=== PATIENT | female | born 1975 | race Caucasian/White ===

== ENCOUNTER → 2022-05-06 10:33 | Outpatient (CLI) | payer OTHER, SELFPAY ==
[2022-05-06 19:47] LABS: Add Manual Diff / Slide Review NO; Basophils Absolute Auto 0 /uL (0-100); Basophils Percent Auto 0.4 % (0-2); Eosinophils Absolute Auto 100 /uL (0-450); Eosinophils Percent Auto 1.8 % (2-4); Hemoglobin 12.7 g/dL (12.0-16.0); Lymphocytes Absolute Auto 1400 /uL (1100-4500); Lymphocytes Percent Auto 36.6 % (25-40); Mean Corpuscular HGB Conc 34.4 % (30-36); Mean Corpuscular Hemoglobin 31.4 PG (26-34); Mean Corpuscular Volume 91.3 fL (80-100); Monocytes Absolute Auto 300 /uL (0-900); Monocytes Percent Auto 8.3 % (3-14); Neutrophils Absolute Auto 2000 /uL (1500-7000); Neutrophils Percent Auto 52.9 % (50-75); Platelet Count 254 X10^3/uL (150-400); Red Blood Cell Count 4.06 X10^6/uL (4.0-5.2); Red Cell Distribution Width 12.4 % (11.6-14.8); White Blood Cell Count 3.8 X10^3/uL (4.5-11.0)
[2022-05-06 19:56] LABS: Hemoglobin A1C% w Est Avg Glu 5.2 % (4.0-6.0)
[2022-05-06 20:07] LABS: Alanine Aminotransferase 18 IU/L (<35); Albumin 4.2 g/dL (3.5-5.0); Albumin Globulin Ratio 1.5 (1.0-2.8); Alkaline Phosphatase 42 U/L (38-126); Aspartate Aminotransferase 26 IU/L (14-36); Bilirubin Total 0.5 mg/dL (0.2-1.3); Blood Urea Nitrogen 9 mg/dL (7-17); Calcium 8.8 mg/dL (8.4-10.2); Carbon Dioxide 31 mmol/L (22-32); Chloride 101 mmol/L (98-107); Cholesterol 186 mg/dL (140-199); Estimated Glomerular Filt Rate > 60 mL/min (>60); Globulin 2.8 g/dL (1.7-4.1); Glucose 83 mg/dL (70-100); HDL Cholesterol 57 mg/dL (40-60); HEMOLYSIS < 15 (0-50); LDL Cholesterol Calculated 121 mg/dL (<100); Potassium 4.2 mmol/L (3.4-5.1); Sodium 139 mmol/L (137-145); Triglycerides 41 mg/dL (35-150)
[2022-05-06 20:22] LABS: TSH w/ Reflex to FT4 1.16 uIU/mL (0.47-4.68)
== END ==
PROVIDERS: PCP Physician Assistant; Visit Provider Physician Assistant
DX: F32.9 Major depressive disorder, single episode, unspecified (principal); F41.9 Anxiety disorder, unspecified; F51.01 Primary insomnia; G43.909 Migraine, unspecified, not intractable, without status migrainosus; G62.9 Polyneuropathy, unspecified
CPT/HCPCS: 80053; 80061; 83036; 84443; 85025

== ENCOUNTER → 2022-10-06 14:38 | Outpatient (CLI) | payer OTHER, SELFPAY ==
[2022-10-06 19:12] LABS: Add Manual Diff / Slide Review NO; Basophils Absolute Auto 0 /uL (0-100); Basophils Percent Auto 0.3 % (0-2); Eosinophils Absolute Auto 0 /uL (0-450); Eosinophils Percent Auto 0.6 % (2-4); Hematocrit 39.3 % (36-46); Hemoglobin 13.3 g/dL (12.0-16.0); Lymphocytes Absolute Auto 1500 /uL (1100-4500); Lymphocytes Percent Auto 22.7 % (25-40); Mean Corpuscular Hemoglobin 31.3 PG (26-34); Mean Corpuscular Volume 92.2 fL (80-100); Monocytes Absolute Auto 500 /uL (0-900); Monocytes Percent Auto 8.1 % (3-14); Neutrophils Absolute Auto 4400 /uL (1500-7000); Neutrophils Percent Auto 68.3 % (50-75); Platelet Count 339 X10^3/uL (150-400); Red Blood Cell Count 4.26 X10^6/uL (4.0-5.2); Red Cell Distribution Width 12.4 % (11.6-14.8); White Blood Cell Count 6.4 X10^3/uL (4.5-11.0)
[2022-10-06 19:18] LABS: Alanine Aminotransferase 19 IU/L (<35); Albumin 4.3 g/dL (3.5-5.0); Albumin Globulin Ratio 1.4 (1.0-2.8); Alkaline Phosphatase 66 U/L (38-126); Aspartate Aminotransferase 25 IU/L (14-36); BUN Creatinine Ratio 19.8 (6-22); Bilirubin Total 0.6 mg/dL (0.2-1.3); Blood Urea Nitrogen 16 mg/dL (7-17); Calcium 9.5 mg/dL (8.4-10.2); Carbon Dioxide 30 mmol/L (22-32); Chloride 98 mmol/L (98-107); Cholesterol 244 mg/dL (140-199); Estimated Glomerular Filt Rate > 60 mL/min (>60); Globulin 3.1 g/dL (1.7-4.1); Glucose 85 mg/dL (70-100); HDL Cholesterol 73 mg/dL (40-60); HEMOLYSIS < 15 (0-50); LDL Cholesterol Calculated 160 mg/dL (<100); Potassium 4.2 mmol/L (3.4-5.1); Sodium 138 mmol/L (137-145); Total Protein 7.4 g/dL (6.3-8.2); Triglycerides 54 mg/dL (35-150)
[2022-10-06 19:33] LABS: Free T4, Direct Thyroxine 1.32 ng/dL (0.78-2.19)
[2022-10-06 19:47] LABS: Thyroid Stimulating Hormone 2.02 uIU/mL (0.47-4.68)
== END ==
PROVIDERS: PCP Physician Assistant; Visit Provider Family Medicine
DX: R63.4 Abnormal weight loss (principal); R11.0 Nausea; R13.10 Dysphagia, unspecified
CPT/HCPCS: 80053; 80061; 84439; 84443; 84481; 85025

== ENCOUNTER → 2022-10-12 14:30 | Outpatient (CLI) | payer OTHER, SELFPAY ==
[2022-10-15 14:59] LABS: H. Pylori Antigen Stool Negative (Negative)
== END ==
PROVIDERS: PCP Physician Assistant; Visit Provider Family Medicine
DX: R11.0 Nausea (principal); R63.4 Abnormal weight loss
CPT/HCPCS: 87338

== ENCOUNTER → 2022-10-15 10:56 | Outpatient (CLI) | payer OTHER, SELFPAY ==
--- NOTE | 2022-10-15 11:00 | DI.CT.S_ITS ---
PROCEDURE: CT ABDOMEN PELVIS W CON INDICATIONS: 30 # weight loss, constant nausea, dysphagia TECHNIQUE: After the administration of oral and IV contrast, axial sections were acquired from the lung bases to the pubic symphysis. Coronal and sagittal reformats were performed. For radiation dose reduction, the following was used: automated exposure control, adjustment of mA and/or kV according to patient size. COMPARISON: None. FINDINGS: Image quality: Excellent. Lung bases: Unremarkable. Heart: No significant findings. ABDOMEN: Liver: Unremarkable. Gallbladder: Gallbladder is distended. No calcified gallstones. No gallbladder wall thickening or pericholecystic fluid. Biliary ducts: Unremarkable. Pancreas: Unremarkable. Spleen: Unremarkable. Adrenal Glands: Unremarkable. Kidneys and Ureters: Unremarkable. Stomach and Bowel: There is no bowel obstruction. Fecal stasis in the colon is seen. Suggestion of distal gastric wall thickening and edema is noted with narrowing of the lumen. Fluid-filled small bowel loops are noted in lower abdomen and pelvis with questionable small bowel wall thickening. Appendix is visualized and is within normal limits. No abnormal colonic wall thickening. No abscess collection. Peritoneum: No abnormal intraperitoneal fluid. No free air. Ventral Wall: No hernia. Abdominal Nodes: No retroperitoneal or mesenteric adenopathy by size criteria. Vessels: Aorta and inferior vena cava are normal in size. PELVIS: Pelvic Organs: Intrauterine device is noted. No gross abnormality is seen in bilateral adnexa. Small amount of free fluid is seen in lower pelvis. Bladder: Partially distended urinary bladder shows questionable bladder wall thickening, no discrete bladder wall mass is noted. Pelvic Nodes: No enlarged lymph nodes. Miscellaneous: No inguinal hernias are seen. Bones: No suspicious bony lesion. No acute vertebral body compression fracture. IMPRESSION: 1. Distal gastric wall thickening and edema concerning for infectious or inflammatory gastritis. 2. Suggestion of small bowel wall thickening and edema in lower abdomen and pelvis concerning for enteritis. 3. Szmf-oz-jeddnxug constipation. No abnormal colonic wall thickening. No abscess collection. No free fluid or free air. 4. Questionable bladder wall thickening suggest clinical correlation for possible cystitis. No definite bladder wall mass is seen. Dictated by: Cooper Reyes M.D. on 10/15/2022 at 15:17 Approved by: Cooper Reyes M.D. on 10/15/2022 at 15:28
== END ==
PROVIDERS: PCP Physician Assistant; Referring Provider Family Medicine; Visit Provider Family Medicine
DX: K59.00 Constipation, unspecified (principal); R13.10 Dysphagia, unspecified; R63.4 Abnormal weight loss; R11.0 Nausea
CPT/HCPCS: 74177; Q9967

== ENCOUNTER → 2023-04-27 13:17 | Outpatient (CLI) | payer OTHER, SELFPAY ==
[2023-04-27 18:59] LABS: Add Manual Diff / Slide Review NO; Basophils Absolute Auto 0 /uL (0-100); Basophils Percent Auto 0.5 % (0-2); Eosinophils Absolute Auto 100 /uL (0-450); Eosinophils Percent Auto 1.8 % (2-4); Hematocrit 35.9 % (36-46); Hemoglobin 12.2 g/dL (12.0-16.0); Lymphocytes Absolute Auto 1800 /uL (1100-4500); Lymphocytes Percent Auto 41.6 % (25-40); Mean Corpuscular HGB Conc 34.1 % (30-36); Mean Corpuscular Hemoglobin 31.1 PG (26-34); Mean Corpuscular Volume 91.2 fL (80-100); Monocytes Absolute Auto 300 /uL (0-900); Monocytes Percent Auto 7.5 % (3-14); Neutrophils Absolute Auto 2100 /uL (1500-7000); Neutrophils Percent Auto 48.6 % (50-75); Platelet Count 271 X10^3/uL (150-400); Red Blood Cell Count 3.94 X10^6/uL (4.0-5.2); Red Cell Distribution Width 12.4 % (11.6-14.8); White Blood Cell Count 4.4 X10^3/uL (4.5-11.0)
[2023-04-27 19:02] LABS: HEMOLYSIS < 15 (0-50); Iron 164 ug/dL (37-170)
[2023-04-27 19:07] LABS: Alanine Aminotransferase 20 IU/L (<35); Albumin 3.9 g/dL (3.5-5.0); Albumin Globulin Ratio 1.4 (1.0-2.8); Alkaline Phosphatase 55 U/L (38-126); Aspartate Aminotransferase 27 IU/L (14-36); BUN Creatinine Ratio 17.5 (6-22); Bilirubin Total 0.4 mg/dL (0.2-1.3); Blood Urea Nitrogen 14 mg/dL (7-17); Calcium 9.4 mg/dL (8.4-10.2); Carbon Dioxide 32 mmol/L (22-32); Chloride 101 mmol/L (98-107); Estimated Glomerular Filt Rate > 60 mL/min (>60); Globulin 2.7 g/dL (1.7-4.1); Glucose 86 mg/dL (70-100); HEMOLYSIS < 15 (0-50); Potassium 3.7 mmol/L (3.4-5.1); Sodium 139 mmol/L (137-145); Total Protein 6.6 g/dL (6.3-8.2)
[2023-04-27 19:15] LABS: Percent Iron Saturation 53 % (15-50); Total Iron Binding Capacity 308 ug/dL (265-497)
[2023-04-27 19:18] LABS: Transferrin 216 mg/dL (206-381)
[2023-04-27 19:42] LABS: Ferritin 22 ng/mL (6-137)
[2023-04-27 19:56] LABS: Vitamin B12 > 1000 pg/mL (239-931)
[2023-04-27 20:14] LABS: Folate > 20.0 ng/mL (2.76-20.0)
== END ==
PROVIDERS: PCP Family Medicine; Visit Provider Family Medicine
DX: G25.81 Restless legs syndrome (principal); G62.9 Polyneuropathy, unspecified; R53.83 Other fatigue; R63.4 Abnormal weight loss
CPT/HCPCS: 80053; 82607; 82728; 82746; 83540; 83550; 85025

== ENCOUNTER → 2023-09-09 14:24 | Outpatient (CLI) | payer OTHER, SELFPAY ==
--- NOTE | 2023-09-09 14:30 | DI.RAD.S_ITS ---
PROCEDURE: XR LUMBAR SPINE MIN 4V INDICATIONS: back pain TECHNIQUE: 5 views of the lumbar spine were acquired, including bilateral oblique views. COMPARISON: None. FINDINGS: Bones: 5 nonrib-bearing vertebrae are present. There is normal bony alignment. No vertebral body compression fractures. No suspicious bony lesions. Soft tissues: Overlying bowel gas pattern is normal. No suspicious soft tissue calcifications. Moderate colonic stool load. Oblique images: No pars defects. IMPRESSION: No significant degenerative disc disease or facet arthrosis. Moderate colonic stool load. Dictated by: Go Farrar M.D. on 09/09/2023 at 16:46 Approved by: Go Farrar M.D. on 09/09/2023 at 16:46
--- NOTE | 2023-09-09 14:30 | DI.RAD.S_ITS ---
PROCEDURE: XR CERVICAL SPINE 4V OR 5V INDICATIONS: neck pain TECHNIQUE: 5 views of the cervical spine acquired. COMPARISON: None. FINDINGS: Bones: No fractures or dislocations to the T1 level. Oblique images demonstrate no bony foraminal stenoses. Right-sided neural foraminal narrowing at C3-4. Facet hypertrophy at C3-4, left greater than right. Soft tissues: No prevertebral soft tissue swelling. IMPRESSION: Facet hypertrophy at C3-4, left greater than right, resulting in [id number] right-sided neural foraminal narrowing. Dictated by: Go Farrar M.D. on 09/09/2023 at 16:46 Approved by: Go Farrar M.D. on 09/09/2023 at 16:50
== END ==
PROVIDERS: PCP Family Medicine; Referring Provider Anesthesiology; Visit Provider Anesthesiology
DX: M47.812 Spondylosis without myelopathy or radiculopathy, cervical region (principal); M48.02 Spinal stenosis, cervical region; M54.2 Cervicalgia; M54.9 Dorsalgia, unspecified
CPT/HCPCS: 72050; 72110; 99214

== ENCOUNTER → 2024-01-21 07:38 | Outpatient (CLI) | payer OTHER, SELFPAY ==
--- NOTE | 2024-01-21 | DI.NM.S_ITS ---
PROCEDURE: NM HUMA PERF SPECT R&S PHARM Rest and pharmacological stress myocardial perfusion SPECT with gated imaging and ejection fraction RADIOPHARMACEUTICAL: 25.8 mCi Tc-99m tetrafosmin IV at rest and 24.8 mCi Tc-99m tetrafosmin IV at peak effect of pharmacological stress. Jif-oby-nfgstqpi was performed. INDICATIONS: Syncope TECHNIQUE: Radiopharmaceutical was injected at peak stress test, and also at rest. SPECT images were obtained. SPECT myocardial perfusion images were displayed in short axis, horizontal long axis, and vertical long axis views. Gated images were reviewed using Fingerprint software. COMPARISON: None. CARDIAC STRESS: An exercise stress test was performed using the Santi protocol 6:00. The patient achieved a maximum heart rate of 139 bpm (81% peak predicted) but could not keep up with the treadmill so this test was switched to pharmacologic. She achieved 6.9 METS and an AVERY of +41%. A pharmacologic stress test was performed under the supervision of an attending staff, using an infusion of regadenoson 0.4 mg IV. Hemodynamic data: There is normal blood pressure and heart rate response to pharmacologic stress. Symptoms: The patient denied anginal chest pain. EKG: No diagnostic changes of ischemia; no ectopy. FINDINGS: Raw data: There is good myocardial uptake of radiotracer. No significant motion artifacts. Niao-wu-bsbll ratio is 0.36 (normal is less than 0.38 for tetrafosmin tracer). Left ventricle function: Gated images demonstrate normal left ventricular wall thickening. No segmental wall motion abnormalities. No transient ischemic dilation; TID is 0.92 (normal less than 1.3). Left ventricle resting end diastolic volume is 65 mL. Left ventricle stress ejection fraction is >75%; normal range is above 45%. Myocardial perfusion: There is normal distribution of activity in the right and left ventricular myocardium. No fixed or reversible perfusion defects. IMPRESSION: Low risk study for ischemia. Exercise stress test converted to pharmacologic due to inability to keep up with the treadmill. No evidence of pharmacologic induced ischemia or scar. Normal LV size with hyperdynamic function. Dictated by: Angelica Day D.O. on 01/26/2024 at 15:15 Approved by: Angelica Day D.O. on 01/26/2024 at 15:19
== END ==
LOC: NUCM 07:38
PROVIDERS: PCP Family Medicine; Referring Provider Family Medicine; Visit Provider Family Medicine
DX: R55 Syncope and collapse (principal); R07.89 Other chest pain; I95.9 Hypotension, unspecified
CPT/HCPCS: 78452; 93017; A9502; J2785

== ENCOUNTER → 2024-04-11 12:10 | Outpatient (CLI) | payer OTHER, SELFPAY ==
--- NOTE | 2024-04-11 12:11 | DI.MRI.S_ITS ---
PROCEDURE: MR HEAD/BRAIN WO/W CON INDICATIONS: near syncope vrs seizure TECHNIQUE: Noncontrast axial T1 spin echo, axial T2 fast spin echo, sagittal and axial FLAIR, axial gradient echo, axial diffusion and ADC, coronal thin-slice T2 FSE through the brain. Optional contrast, followed by axial and coronal and sagittal 3D VIBE or T1 spin echo with fat saturation sequences through the brain. COMPARISON: None. FINDINGS: Image quality: Excellent. CSF spaces: Ventricles are normal in size and shape. Basal cisterns are patent. No extra-axial fluid collections. Brain: No intracranial bleeds or mass effects. No abnormal intracranial enhancement. Lebron-white matter interface appears intact. Diffusion weighted images demonstrate no acute ischemic insults. Brainstem appear normal. Normal intravascular flow voids are present. The hippocampal regions appear normal and symmetric in morphology. Skull and face: Calvarial marrow signal is normal. Orbits appear normal. Sinuses: Sinuses and mastoids are clear. IMPRESSION: Normal brain MRI for age, without a cause of seizures identified. The hippocampi demonstrate a normal, symmetric appearance. No masses or abnormal enhancement can be seen. Dictated by: Td Gomez M.D. on 04/11/2024 at 14:45 Approved by: Td Gomez M.D. on 04/11/2024 at 14:46
== END ==
PROVIDERS: PCP Family Medicine; Referring Provider Family Medicine; Visit Provider Family Medicine
DX: R55 Syncope and collapse (principal); R56.9 Unspecified convulsions
CPT/HCPCS: 70553; A9579

== ENCOUNTER → 2024-10-18 14:14 | Outpatient (CLI) | payer OTHER, SELFPAY ==
--- NOTE | 2024-10-18 14:15 | DI.MG.S_ITS ---
MM screening mammo BI: 10/18/2024. BI-RADS: 0 CLINICAL: 49-year old female for bilateral screening mammogram. Tyrer-Cuzick lifetime risk of 14.5%. No personal or first-degree family history of breast cancer. PRIOR EXAMS 04/04/2020, 10/25/2018, 08/09/2017, 04/21/2016. MAMMOGRAPHY TECHNIQUE: 2D and 3D (tomosynthesis) digital mammographic views obtained, with additional images as needed for full coverage. Current study was also evaluated with a Computer Aided Detection (CAD) system. DENSITY D. The breasts are extremely dense, which lowers the sensitivity of mammography. MAMMOGRAPHY FINDINGS Right: No suspicious mass, asymmetry, microcalcification, or other abnormality seen. Left: Upper Outer Quadrant, Posterior depth: Calcifications needing additional imaging evaluation. IMPRESSION: Right * No evidence of malignancy. Left (Calcification): Upper Outer Quadrant, Posterior depth * Incomplete - calcification needing additional imaging evaluation. RECOMMENDATIONS Left: Upper Outer Quadrant, Posterior depth * Further evaluation with diagnostic mammography. OVERALL ASSESSMENT CATEGORY BI-RADS-0: Incomplete - Need Additional Imaging Evaluation. ELECTRONICALLY SIGNED: Rozina Wahl M.D. on 10/18/2024 at 08:43:57 PM PT Interpreting Station ID: [id number]
== END ==
PROVIDERS: PCP Family Medicine; Referring Provider Family Medicine; Visit Provider Family Medicine
DX: Z12.31 Encounter for screening mammogram for malignant neoplasm of breast (principal); R92.343 Mammographic extreme density, bilateral breasts
CPT/HCPCS: 77063; 77067

== ENCOUNTER → 2024-11-10 13:14 | Outpatient (CLI) | payer OTHER, SELFPAY ==
--- NOTE | 2024-11-10 13:15 | DI.US.S_ITS ---
US breast LT limited, MM diagnostic mammo unilat LT: 11/10/2024 BI-RADS: 3 CLINICAL: 49-year old female for left diagnostic mammogram and left diagnostic breast ultrasound that is a recall from screening on 10/18/2024. Tyrer-Cuzick lifetime risk of 14.5%. No personal or first-degree family history of breast cancer. PRIOR EXAMS: Mammogram(s): 10/18/2024, 04/04/2020, 10/25/2018. MAMMOGRAPHY TECHNIQUE: 2D and 3D (tomosynthesis) digital mammographic views obtained, with additional images as needed for full coverage. Current study was also evaluated with a Computer Aided Detection (CAD) system. ULTRASOUND TECHNIQUE Real-time bear scale and color doppler imaging of the area of clinical interest was performed with image documentation. Left targeted breast ultrasound of the area of clinical interest and the axilla was performed with image documentation. DENSITY Left: D. The breasts are extremely dense, which lowers the sensitivity of mammography. MAMMOGRAPHY FINDINGS Left (finding-1): Outer at 3:00, Posterior depth. Previous report: Upper Outer Quadrant: There are grouped milk of calcium VERSUS round calcifications. ULTRASOUND FINDINGS Left (finding-1): Outer at 3:00, 7 cm from nipple, measuring 0.9 x 0.7 x 0.6 cm. Previous report: Upper Outer Quadrant: Associated microcalcifications and internal septation. Correlating with findings on mammogram there is a complicated cyst showing posterior acoustic enhancement. Doppler shows no vascularity. No axillary adenopathy. IMPRESSION: Left (Complicated Cyst): Outer at 3:00, 7 cm from nipple, measuring 0.9 x 0.7 x 0.6 cm. Previous report: Upper Outer Quadrant * Probably Benign. RECOMMENDATIONS Left: Outer at 3:00, 7 cm from nipple * Six month followup with diagnostic ultrasound and diagnostic mammography. COMMENTS: Findings and recommendations were conveyed to the patient during today's evaluation. OVERALL ASSESSMENT CATEGORY BI-RADS-3: Probably Benign. ELECTRONICALLY SIGNED: Cj Do M.D. on 11/10/2024 at 03:19:15 PM PT Interpreting Station ID: [id number]
== END ==
PROVIDERS: PCP Family Medicine; Referring Provider Family Medicine; Visit Provider Family Medicine
DX: R92.8 Other abnormal and inconclusive findings on diagnostic imaging of breast (principal); N60.02 Solitary cyst of left breast; R92.342 Mammographic extreme density, left breast
CPT/HCPCS: 76642; 77065; G0279

== ENCOUNTER → 2024-11-20 10:37 | Outpatient (CLI) | payer OTHER, SELFPAY ==
[2024-11-20 19:30] LABS: Add Manual Diff / Slide Review NO; Basophils Absolute Auto 0 /uL (0-100); Basophils Percent Auto 0.6 % (0-2); Eosinophils Absolute Auto 100 /uL (0-450); Hematocrit 38.9 % (36-46); Hemoglobin 12.9 g/dL (12.0-16.0); Lymphocytes Absolute Auto 1700 /uL (1100-4500); Mean Corpuscular HGB Conc 33.2 % (30-36); Mean Corpuscular Hemoglobin 30.6 PG (26-34); Monocytes Absolute Auto 400 /uL (0-900); Monocytes Percent Auto 8.7 % (3-14); Neutrophils Absolute Auto 2500 /uL (1500-7000); Neutrophils Percent Auto 52.7 % (50-75); Platelet Count 295 X10^3/uL (150-400); Red Blood Cell Count 4.23 X10^6/uL (4.0-5.2); Red Cell Distribution Width 12.6 % (11.6-14.8); White Blood Cell Count 4.8 X10^3/uL (4.5-11.0)
[2024-11-20 19:41] LABS: BUN Creatinine Ratio 19.5 (6-22); Blood Urea Nitrogen 16 mg/dL (7-17); Calcium 9.1 mg/dL (8.4-10.2); Carbon Dioxide 31 mmol/L (22-32); Chloride 100 mmol/L (98-107); Cholesterol 288 mg/dL (140-199); Estimated Glomerular Filt Rate > 60 mL/min (>60); Glucose 88 mg/dL (70-99); HDL Cholesterol 82 mg/dL (40-60); HEMOLYSIS < 15 (0-50); LDL Cholesterol Calculated 198 mg/dL (<100); Potassium 4.6 mmol/L (3.4-5.1); Sodium 136 mmol/L (137-145); Triglycerides 42 mg/dL (35-150)
[2024-11-20 20:10] LABS: TSH w/ Reflex to FT4 2.16 uIU/mL (0.47-4.68)
== END ==
PROVIDERS: PCP Family Medicine; Visit Provider Family Medicine
DX: F51.04 Psychophysiologic insomnia (principal); M79.7 Fibromyalgia; F41.1 Generalized anxiety disorder; F32.9 Major depressive disorder, single episode, unspecified; E78.2 Mixed hyperlipidemia; L40.9 Psoriasis, unspecified; G25.81 Restless legs syndrome; R56.9 Unspecified convulsions; G47.30 Sleep apnea, unspecified
CPT/HCPCS: 80048; 80061; 84443; 85025

== ENCOUNTER → 2024-12-01 10:40 | Outpatient (CLI) | payer OTHER, SELFPAY ==
--- NOTE | 2024-12-01 10:41 | DI.MRI.S_ITS ---
MR breast BI wo/w con: 12/01/2024. BI-RADS: 3 CLINICAL: 49-year old female for bilateral diagnostic breast MRI that is a recall from screening on 10/18/2024. No personal or first-degree family history of breast cancer. PRIOR EXAMS Mammogram(s): 11/10/2024, 10/18/2024, 04/04/2020. Breast Ultrasound(s): 11/10/2024. MRI TECHNIQUE Bilateral breast MRI was performed on a 1.5 Nicki magnet using a dedicated breast coil with mild compression. Axial T1 and T2 STIR sequences were obtained. Dynamic contrast enhanced VIBRANT fat-suppressed sequences were obtained. Delayed sagittal high resolution or sagittal reconstructed isotropic sequence was also obtained. Subtraction images and maximum intensity projection images were obtained. The study was evaluated using Lemon software. IV Contrast: 20 ml ProHance. FIBROGLANDULAR TISSUE Bilateral: D. Extreme fibroglandular tissue. BACKGROUND PARENCHYMAL ENHANCEMENT Bilateral: Marked symmetrical background parenchymal enhancement. BREAST FINDINGS There are no abnormal axillary or internal mammary lymph nodes. Left: Outer at 3:00, 7 cm from nipple: There is no MRI correlate to the calcifications or septated cyst previously seen. Left: 3:00 anterior depth enhancing focus measuring 0.5 cm. Kinetic analysis demonstrates slow initial phase and persistent delayed phase. This is typically benign. Bilateral: Benign-appearing cysts noted. There is no suspicious finding with benign findings noted. IMPRESSION: Right * No evidence of malignancy with benign findings. Left: Outer at 3:00, 7 cm from nipple * Probably Benign. RECOMMENDATIONS Left: Outer at 3:00, 7 cm from nipple * Further evaluation with diagnostic mammography. * Six month followup with diagnostic ultrasound. OVERALL ASSESSMENT CATEGORY BI-RADS-3: Probably Benign. ELECTRONICALLY SIGNED: Cj Do M.D. on 12/02/2024 at 05:24:05 PM PT Interpreting Station ID: [id number]
== END ==
LOC: MRI 10:40
PROVIDERS: PCP Family Medicine; Referring Provider Family Medicine; Visit Provider Family Medicine
DX: R92.8 Other abnormal and inconclusive findings on diagnostic imaging of breast (principal); R92.1 Mammographic calcification found on diagnostic imaging of breast; R92.333 Mammographic heterogeneous density, bilateral breasts; Z79.890 Hormone replacement therapy
CPT/HCPCS: 77049; A9579